=== PATIENT | male | born 1995 | race Two or more races ===

== ENCOUNTER 2018-12-18 20:13 | Emergency (ER) | payer OTHER ==
[~2018-12-18] VITALS: Ht 182.9 cm; Wt 104.3 kg
[2018-12-18 20:45] VITALS: BP 157/87
== END 2018-12-19 02:30 | disposition left against medical advice (07) ==
LOC: ER 20:13
DX: R10.9 Unspecified abdominal pain (principal); Z53.21 Procedure and treatment not carried out due to patient leaving prior to being seen by health care provider